=== PATIENT | male | born 1990 | race Caucasian/White ===

== ENCOUNTER 2018-01-13 13:04 | Emergency (ER) | payer BC ==
[~2018-01-13 13:04] MED LIST: ISOVUE-370 76%-LOCM 1 ML ONE
[2018-01-13] MEDS ORDERED: cefTRIAXone\\ROCEPHIN 2 GM VIAL ONE (13:17)
[2018-01-13] MEDS ORDERED: Bacitracin Zinc 1 Packet ONE (14:25)
[2018-01-13] MEDS ORDERED: Adacel (T-DAP) 0.5 ML VIAL ONE (14:49)
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
== END 2018-01-13 15:54 | disposition home or self-care (01) ==
LOC: ERS 13:04
DX: S93.401A Sprain of unspecified ligament of right ankle, initial encounter (principal); S00.81XA Abrasion of other part of head, initial encounter; S00.31XA Abrasion of nose, initial encounter; S00.511A Abrasion of lip, initial encounter; S40.812A Abrasion of left upper arm, initial encounter; S40.811A Abrasion of right upper arm, initial encounter; S80.212A Abrasion, left knee, initial encounter; V20.4XXA Motorcycle driver injured in collision with pedestrian or animal in traffic accident, initial encounter; Y92.410 Unspecified street and highway as the place of occurrence of the external cause
CPT/HCPCS: 70450; 71260; 72125; 74177; 90471; 90715; 96365; G0390; J0696